=== PATIENT | female | born 1960 | race Two or more races ===

== ENCOUNTER 2022-02-04 04:19 | Day surgery (SDC) | payer OTHER ==
[2022-01-30 17:40] VITALS: BMI 22.2
[2022-02-04] MEDS ORDERED: DEXAMETHASONE SOD PHOSPHATE 4 MG/1 ML VIAL ONE (10:04)
[2022-02-04] MEDS ORDERED: MIDAZOLAM HCL 2 MG/2 ML SINGLE DOSE VIAL ONE ×5 (10:04→10:09)
[2022-02-04] MEDS ORDERED: PROPOFOL 20 ML ONE (10:04)
[2022-02-04] MEDS ORDERED: ONDANSETRON 4 MG/2 ML VIAL ONE (10:04)
[2022-02-04] MEDS ORDERED: LIDOCAINE HCL/PF 2% SDV 5ML VIAL ONE (10:04)
[2022-02-04] MEDS ORDERED: DEXAMETHASONE SOD PHOSPHATE 10 MG/1 ML VIAL ONE (10:07)
[2022-02-04] MEDS ORDERED: ROPIVACAINE HCL 0.5% 30ML VIAL ONE (10:08)
[2022-02-04] MEDS ORDERED: ceFAZolin SODIUM 1 GM VIAL ONE (10:40)
[2022-02-04] MEDS ORDERED: ONDANSETRON 4 MG/2 ML VIAL IVPUSH PRN (10:49)
[2022-02-04] MEDS ORDERED: FENTANYL CITRATE/PF 50 MCG/ML VIAL IVPUSH PRN (10:49)
[2022-02-04] MEDS ORDERED: oxyCODONE HCL 5 MG TABLET PO PRN (10:49)
[2022-02-04] MEDS ORDERED: ceFAZolin SODIUM 1 GM VIAL IVPB ONE (10:54)
[2022-02-04] MEDS ORDERED: LACTATED RINGERS SOLUTION 1,000 ML IV SCH (11:00)
[2022-02-04 14:31] VITALS: BP 127/75; PULSE 77; TEMP 97.7
== END 2022-02-04 14:15 | disposition home or self-care (01) ==
LOC: JASU-SURG 04:19
PROVIDERS: ATTEND Orthopaedic Surgery
PROC: 0PB94ZZ Excision of Right Clavicle, Percutaneous Endoscopic Approach (ICD-10-PCS; 2022-02-04)
PROC: 0RNJ4ZZ Release Right Shoulder Joint, Percutaneous Endoscopic Approach (ICD-10-PCS; principal; 2022-02-04 09:30)
PROC: 0LM14ZZ Reattachment of Right Shoulder Tendon, Percutaneous Endoscopic Approach (ICD-10-PCS; 2022-02-04 09:30)
DX: M75.41 Impingement syndrome of right shoulder (principal); M75.101 Unspecified rotator cuff tear or rupture of right shoulder, not specified as traumatic
CPT/HCPCS: 94760; J1100